=== PATIENT | female | born 1975 | race American Indian/Alaskan Native ===

== ENCOUNTER 2020-12-07 08:00 | Outpatient (CLI) | payer OTHER | END 2020-12-07 08:30 | disposition home or self-care (01) | LOC: PPH VACUNA 08:00 | DX: Z23 Encounter for immunization (principal) ==

== ENCOUNTER 2020-12-28 08:00 | Outpatient (CLI) | payer OTHER | END 2020-12-28 08:30 | disposition home or self-care (01) | LOC: PPH VACUNA 08:00 | DX: Z23 Encounter for immunization (principal) ==

== ENCOUNTER 2021-02-05 10:40 | Emergency (ER) | payer OTHER ==
[~2021-02-05] VITALS: Ht 154.9 cm; Wt 93.4 kg
[2021-02-05] MEDS ORDERED: IPRAT-ALBUT 0.5-3 ML IH (14:49)
[2021-02-05] MEDS ORDERED: MUCINEX DM ER1 EAC1 PO (14:49)
[2021-02-05] MEDS ORDERED: MEDROLPACK PO (14:49)
[2021-02-05] MEDS ORDERED: TESSALON PERLE100 M1 PO (14:49)
[2021-02-05] MEDS ORDERED: BUDESONIDE0.5 MG/2 M IH (14:49)
[2021-02-05] MEDS ORDERED: RESPTHERAMACH (14:51)
== END 2021-02-05 15:01 | disposition home or self-care (01) ==
LOC: ER 10:40
DX: J06.9 Acute upper respiratory infection, unspecified (principal); Z11.52 Encounter for screening for COVID-19

== ENCOUNTER 2021-05-09 09:40 | Emergency (ER) | payer OTHER ==
[~2021-05-09] VITALS: Ht 144.8 cm; Wt 98.0 kg
[~2021-05-09 09:40] MED LIST: BUDESONIDE0.5 MG/2 M IH; IPRAT-ALBUT 0.5-3 ML IH; MEDROLPACK PO; MUCINEX DM ER1 EAC1 PO; RESPTHERAMACH; TESSALON PERLE100 M1 PO
[2021-05-09] MEDS ORDERED: MULTI VITAMIN1 EACH (09:50)
== END 2021-05-09 13:44 | disposition home or self-care (01) ==
LOC: ER 09:40
DX: K52.89 Other specified noninfective gastroenteritis and colitis (principal)

== ENCOUNTER 2021-07-25 08:00 | Outpatient (CLI) | payer OTHER ==
[~2021-07-25 08:00] MED LIST changes: +MULTI VITAMIN1 EACH
== END 2021-07-25 08:30 | disposition home or self-care (01) ==
LOC: PPH VACUNA 08:00
PROVIDERS: ATTEND Emergency Medicine Pediatric Emergency Medicine
DX: Z23 Encounter for immunization (principal)

== ENCOUNTER 2021-12-13 09:46 | Emergency (ER) | payer OTHER ==
[~2021-12-13] VITALS: Ht 152.4 cm; Wt 98.9 kg
[2021-12-13] MEDS ORDERED: CIPRO500 MG PO (13:44)
== END 2021-12-13 13:46 | disposition home or self-care (01) ==
LOC: ER 09:46
DX: R53.83 Other fatigue (principal); Z20.822 Contact with and (suspected) exposure to COVID-19; Z88.0 Allergy status to penicillin

== ENCOUNTER 2022-08-03 10:26 | Emergency (ER) | payer OTHER ==
[~2022-08-03] VITALS: Ht 144.8 cm; Wt 90.7 kg
[~2022-08-03 10:26] MED LIST changes: +CIPRO500 MG PO
== END 2022-08-03 14:13 | disposition home or self-care (01) ==
LOC: ER 10:26
DX: J00 Acute nasopharyngitis [common cold] (principal); Z20.828 Contact with and (suspected) exposure to other viral communicable diseases

== ENCOUNTER → 2022-10-15 | Emergency (ER) | payer OTHER ==
[~2022-10-15] VITALS: Ht 149.9 cm; Wt 100.7 kg
== END | disposition left against medical advice (07) ==
LOC: ER 13:50
DX: Z53.21 Procedure and treatment not carried out due to patient leaving prior to being seen by health care provider (principal)